=== PATIENT | male | born 1950 | race Caucasian/White ===

== ENCOUNTER 2018-10-18 09:47 | Emergency (ER) | payer SELFPAY ==
[~2018-10-18] VITALS: Wt 78.9 kg
[~2018-10-18 09:47] MED LIST: ASPI-817; IBUP-40
[2018-10-18 09:49] VITALS: BP 139/83; PULSE 83; RESP 18
--- NOTE | 2018-10-18 10:45 | ERD ---
ER Documentation Chief Complaint Chief Complaint back pain x 3 days HPI 67-year-old male presents with left-sided back pain. States that the pain radiates slightly down his left leg. Denies any numbness or tingling of his pain. Denies any injury. Describes the pain as sharp pain that is constant and nothing makes it better/worse. He states he has been taking Tylenol and ibuprofen at home with no relief of the pain. He denies any saddle anesthesia, fevers, loss of bowel or bladder function. He reports that he has had a pain similar like this years ago that resolved on itself. He has a history of prostate issues but has no acute urinary symptoms and denies any blood in his urine or increased urinary urgency. He reports he has had kidney stones in the past. ROS All systems reviewed and are negative except as per history of present illness. Medications Home Meds Active Scripts Hydrocodone/Acetaminophen ([place] 5-325 Tablet) 1 Each Tablet, 1 TAB PO Q6H PRN for PAIN, #7 TAB Prov:DEVIN VAZQUEZ PA-C 10/18/18 Reported Medications Ibuprofen (Advil) 200 Mg Tablet 09/29/09 Aspirin* (Aspirin* EC) 81 Mg Tablet. 09/29/09 Allergies Allergies: Coded Allergies: No Known Allergies (Verified Allergy, Mild, 09/27/09) PMhx/Soc Medical and Surgical Hx: pt denies Medical Hx History of Surgery: No Anesthesia Reaction: No Hx Neurological Disorder: No Hx Respiratory Disorders: No Hx Cardiac Disorders: No Hx Psychiatric Problems: No Hx Miscellaneous Medical Probl: No Hx Alcohol Use: Yes Hx Substance Use: No Hx Tobacco Use: No FmHx Family History: diabetes Physical Exam Vitals Vital Signs Date Temp Pulse Resp B/P (MAP) Pulse Ox O2 O2 Flow FiO2 Time Delivery Rate 10/18/18 97.8 83 18 139/83 99 09:49 (101) Physical Exam Const: No acute distress Head: NCAT Neck: Full range of motion. No meningismus. Resp: Clear to auscultation bilaterally Cardio: Regular rate and rhythm, no murmurs Abd: Soft, non tender, non distended. Normal bowel sounds Skin: No petechiae or rashes Back: no rashes, wounds, bruising. Tenderness located along left flank radiating down left leg Neur: Awake and alert Psych: Normal Mood and Affect Results 24 hrs Laboratory Tests Test 10/18/18 10:41 Bedside Urine pH (LAB) 6.0 Bedside Urine Protein (LAB) Negative Bedside Urine Glucose (UA) Negative Bedside Urine Ketones (LAB) Negative Bedside Urine Blood Trace-intact Bedside Urine Nitrite (LAB) Negative Bedside Urine Leukocyte Esterase (L Negative Current Medications Medications Dose Sig/Stoney Start Time Status Last (Trade) Ordered Route PRN Stop Time Admin Dose Reason Admin Ibuprofen 600 mg ONCE ONCE 10/18/18 DC 10/18/18 (Motrin) PO 11:00 10/18/18 10:54 11:01 Procedures/MDM ED COURSE: The patient was stable throughout ED course. I kept the patient was informed of laboratory and diagnostic imaging results throughout the ED course. DIAGNOSTIC IMAGING: Read by radiologist. PROCEDURE: CT abdomen and pelvis without contrast. CLINICAL INDICATION: Abdominal Pain TECHNIQUE: CT scan of the abdomen and pelvis without oral contrast was performed and is reconstructed at 2.5 mm contiguous axial intervals from the dome of the diaphragm to the inferior pubic rami.. The patient was scanned without intravenous contrast. Sagittal and coronal reformatted images were obtained from the axial source images. The calculated radiation dose measures 1003 mGy centimeters. The CTDI measures 17.4 mGy. Individualized dose optimization technique was used for the performance of this exam. This included 1. Automated exposure control. 2. Adjustment of the mA and / or kV according to the patient's size. 3. Use of iterative reconstructed technique. DICOM images are available. COMPARISON: None. FINDINGS: The lung bases are clear of any infiltrate or nodule. No effusion is seen. There is cardiomegaly. The liver is of normal size, contour and attenuation with no mass or ductal dilatation. No gallstones are visualized. No splenic, adrenal or pancreatic abnormalities present. Kidneys are of normal size and contour. No hydronephrosis, calculus or solid mass Is seen. There are bilateral 1 cm parenchymal cysts. 5 mm hyperdense cyst is noted on the dorsal left kidney. Ureters are of normal course and caliber with no stone. No bladder mass or stone is present. Prostate and seminal vesicles appear normal. There is no aneurysm. No adenopathy is present. No bowel mass or obstruction is present. The appendix is normal. No phlegmon, ascites or pneumoperitoneum is visualized. There is an umbilical hernia containing fat. 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 IMPRESSION: No evidence of urolithiasis, obstructive uropathy, diverticulitis or appendicitis. Bilateral renal cysts. No further workup required. Senescent degenerative disease lumbar spine. Cardiomegaly. Umbilical hernia containing fat. .Bob Tobias MD, MD Date Time Electronically viewed and signed by .Bob Tobias MD, on 10/18/2018 11:15 MEDICATIONS GIVEN: Ibuprofen Patient tolerated medication well with no adverse reactions. Patient reported improvement in pain. MEDICAL DECISION MAKING: Patient is a 67-year-old male presenting with back pain located on the left lower back for the past 3 days. She reports a history of previous back pain that feels similar that resolved on itself. Pt also reporst hx of stones and is unsure if this is what is occurring right now. H&P and other data not c/w emergent process (eg. DANIEL, E.A., obstructed pyelo, AAA, CAUDA EQUINA SYNDROME, CORD COMPRESSION, INFILTRATIVE, INFECTIOUS ETIOLOGY, EPIDURAL ABSCESS, FRACTURE).vital signs were reviewed. Patient is afebrile. Patient was not hypoxic. Patient was hemodynamically stable. PRESCRIPTION: [place] - cures was checked appropriately DISCHARGE: At this time, patient is stable for discharge and outpatient management. I have instructed the patient to follow-up with his/her primary care physician in 1-2 days. I have discussed with the patient the possibility of needing to see a specialist for further workup and imaging studies if symptoms persist. I have instructed the patient to promptly return to the ER for any new or worsening symptoms including increased pain, fever, nausea, vomiting, weakness or LOC. The patient and/or family expressed understanding of and agreement with this plan. All questions were answered. Home care instructions were provided. Disclaimer: Inadvertent spelling and grammatical errors are likely due to EHR/dictation software use and do not reflect on the overall quality of patient care. Also, please note that the electronic time recorded on this note does not necessarily reflect the actual time of the patient encounter. Departure Condition: DEVIN Soria PA-C Oct 18, 2018 10:45
[2018-10-18] MEDS ORDERED: IBUPROFEN 600 MG TAB PO ONE (11:00)
[2018-10-18] MEDS ORDERED: HYDR-4011 PO (11:44)
== END 2018-10-18 12:07 | disposition home or self-care (01) ==
LOC: FTE 09:47
DX: M54.5 Low back pain (principal)
CPT/HCPCS: 74176; 81003